=== PATIENT | female | born 1970 | race Caucasian/White ===

== ENCOUNTER → 2018-06-02 | Outpatient (CLI) | payer BC | END | disposition home or self-care (01) | LOC: CFH 11:26 | PROVIDERS: ATTEND Physician Assistant | DX: M25.562 Pain in left knee (principal) ==

== ENCOUNTER → 2018-10-01 | Outpatient (CLI) | payer BC | END | disposition home or self-care (01) | LOC: CFH 15:24 | PROVIDERS: ATTEND Physician Assistant | DX: J98.11 Atelectasis (principal) | CPT/HCPCS: 71046 ==

== ENCOUNTER → 2018-10-08 | Outpatient (CLI) | payer BC | END | disposition home or self-care (01) | LOC: CVU 08:10 | PROVIDERS: ATTEND Physician Assistant | DX: I11.9 Hypertensive heart disease without heart failure (principal) | CPT/HCPCS: 93306 ==

== ENCOUNTER 2018-10-22 12:36 | Outpatient (CLI) | payer BC ==
[~2018-10-22 12:36] MED LIST: REGADENOSON 0.4 MG/5 ML SYRINGE ONE
== END 2018-10-22 23:59 | disposition home or self-care (01) ==
LOC: CFH 12:36
PROVIDERS: ATTEND Physician Assistant
DX: R07.9 Chest pain, unspecified (principal)
CPT/HCPCS: 78452; 93017; A9502; J2785

== ENCOUNTER 2020-02-06 23:21 | Emergency (ER) | payer BC ==
[~2020-02-06] VITALS: Ht 167.6 cm; Wt 147.5 kg
[2020-02-06] MEDS ORDERED: HYDROmorphone 1 MG/ML, 1ML INJ ONE (23:47)
[2020-02-06] MEDS ORDERED: KETOROLAC 60 MG/2 ML ONE (23:47)
[2020-02-06] MEDS ORDERED: ONDANSETRON ODT 4 MG ONE (23:47)
--- NOTE | 2020-02-06 23:50 | NUR ---
THIS IS A 49 YO FEMALE COMING IN WITH C/O RIGHT SIDED FLANK PAIN WITH N/V AND DIZZINESS X2 HRS, REPORTS RECENT UTI CURRENTLY TAKING ABX THAT STARTED TODAY. PAIN WORSENING THROUGHOUT THE DAY. ALL MONITORING IN PLACE, VSS, CALL LIGHT IN REACH. LABS BEING DRAWN
--- NOTE | 2020-02-06 23:56 | NUR ---
MEDICATED PER EMAR
[2020-02-07] MEDS ORDERED: KETOROLAC 30 MG/1 ML IM ONE
[2020-02-07] MEDS ORDERED: HYDROmorphone 1 MG/ML, 1ML INJ IM ONE
[2020-02-07] MEDS ORDERED: ONDANSETRON ODT 4 MG PO ONE
[2020-02-07 00:16] LABS: BASOPHILS # (AUTO) 0.02 x10^3/uL (0-0.1); BASOPHILS % (AUTO) 0 % (0-1); EOSINOPHILS # (AUTO) 0.19 x10^3/uL (0-0.4); EOSINOPHILS % (AUTO) 2 % (1-7); LYMPHOCYTES # (AUTO) 1.45 x10^3/uL (1-3.4); LYMPHOCYTES % (AUTO) 18 % (22-44); MD NO; MEAN CORPUSCULAR HEMOGLOBIN 27.7 pg (27.0-34.8); MEAN CORPUSCULAR VOLUME 86.7 fL (80-100); MEAN PLATELET VOLUME 9.4 fL (7.4-10.4); MONOCYTES % (AUTO) 13 % (2-9); NEUTROPHILS % (AUTO) 67 % (42-75); PLATELET COUNT 206 x10^3/uL (130-400); RED BLOOD COUNT 4.31 x10^6/uL (3.82-5.3); RED CELL DISTRIBUTION WIDTH 14.1 % (9.6-15.2)
--- NOTE | 2020-02-07 00:22 | NUR ---
UA COLLECTED AND SENT
--- NOTE | 2020-02-07 00:22 | NUR ---
PATIENT TO CT
[2020-02-07 00:29] LABS: ALANINE AMINOTRANSFERASE 31 U/L (12-78); ALBUMIN 3.5 g/dL (3.4-5.0); ANION GAP 9 mmol/L (5-15); CHLORIDE 110 mmol/L (98-107); CREATININE 0.95 mg/dL (0.55-1.02)
[2020-02-07 00:31] LABS: MICROSCOPIC AUTO
[2020-02-07 00:32] LABS: ALKALINE PHOSPHATASE 79 U/L (45-117); BILIRUBIN,TOTAL 0.3 mg/dL (0.2-1.0); TOTAL PROTEIN 7.4 g/dL (6.4-8.2)
[2020-02-07] MEDS ORDERED: CEFTRIAXONE PMX 1GM/50ML 50 ML ONE (00:45)
--- NOTE | 2020-02-07 00:50 | NUR ---
PIV PLACED BY [employer]ATHOLIC PRIEST STUDENT. PT TOLERATED WELL. VERIFIED WITH MD NO NEED FOR BLOOD CULTURES PRIOR TO ABX ADMIN.
[2020-02-07] MEDS ORDERED: SODIUM CHLORIDE FLUSH 10ML SYR IVF ONE (01:00)
[2020-02-07] MEDS ORDERED: SODIUM CHLORIDE 0.9% 1,000ML IVBOLUS ONE (01:00)
[2020-02-07] MEDS ORDERED: CEFTRIAXONE PMX 1GM/50ML 50 ML IV ONE (01:00)
--- NOTE | 2020-02-07 01:20 | NUR ---
MDTO ROOM TO DISCUSS POC
[2020-02-07] MEDS ORDERED: OXYcodone/APAP 5/325MG TABLET ONE (01:26)
[2020-02-07] MEDS ORDERED: OXYcodone/APAP 5/325MG TABLET PO ONE (01:30)
[2020-02-07 01:33] VITALS: BP 123/73
--- NOTE | 2020-02-07 01:34 | NUR ---
MEDICATED PER EMAR, IVF INFUSING, PATIENT TO BE DISCHARGED AFTER FLUIDS ARE DONE. VSS, MARCELN. CALL LIGHT IN REACH
--- NOTE | 2020-02-07 01:50 | NUR ---
Patient given discharge instructions and they have confirmed that they understand the instructions. Patient ambulatory with steady in room, wheeled to discharge per patient request.
== END 2020-02-07 02:30 | disposition home or self-care (01) ==
LOC: ED 02-07 02:00
DX: N10 Acute pyelonephritis (principal); R11.2 Nausea with vomiting, unspecified; Z90.49 Acquired absence of other specified parts of digestive tract
CPT/HCPCS: 36415; 74176; 80053; 81001; 85025; 87086; 96365; 96372; 99285; J0696; J1170; J1885; J7030; Q0162; 96361; 99284